=== PATIENT | female | born 1990 | race African-American/Black ===

== ENCOUNTER 2018-02-22 09:48 | Day surgery (SDC) | payer OTHER ==
[2018-02-19 17:50] VITALS: BMI 18.0
[2018-02-22] MEDS ORDERED: MIDAZOLAM HCL 2 MG/2 ML SINGLE DOSE VIAL ONE (11:39)
[2018-02-22] MEDS ORDERED: PROPOFOL 20 ML ONE (11:39)
[2018-02-22] MEDS ORDERED: EPINEPHrine 1:1,000 1 MG/1 ML - 30ML VIAL (INJECTION) ONE (12:04)
[2018-02-22] MEDS ORDERED: ONDANSETRON 4 MG/2 ML VIAL ONE (12:23)
[2018-02-22] MEDS ORDERED: ceFAZolin SODIUM 1 GM VIAL ONE (12:23)
[2018-02-22] MEDS ORDERED: KETOROLAC TROMETHAMINE 30 MG/1 ML VIAL ONE (12:23)
[2018-02-22] MEDS ORDERED: DEXAMETHASONE SOD PHOSPHATE 4 MG/1 ML VIAL ONE (12:23)
[2018-02-22] MEDS ORDERED: TRANEXAMIC ACID 1000 MG/10 ML VIAL ONE (13:23)
[2018-02-22] MEDS ORDERED: BUPIVACAINE HCL 0.25% 125 MG/50 ML VIAL ONE (14:00)
[2018-02-22] MEDS ORDERED: methylPREDNISolone ACET (DEPO) 40 MG/1 ML VIAL ONE (14:00)
[2018-02-22] MEDS ORDERED: ONDANSETRON 4 MG/2 ML VIAL IVPUSH PRN (14:23)
[2018-02-22] MEDS ORDERED: PROMETHAZINE HCL 25 MG/1 ML VIAL IVPUSH PRN (14:23)
[2018-02-22] MEDS ORDERED: oxyCODONE HCL 5 MG TABLET PO PRN ×2 (14:23)
--- NOTE | 2018-02-22 14:32 | OP ---
Operative Note - Note: Operative Date: 02/22/18 Pre-Operative Diagnosis: Right knee PVNS Operation: Surgical arthroscopy right knee with PVNS debridement Post-Operative Diagnosis: Same as Pre-op Surgeon: Florian Iglesias Support Staff: Fredy Iglesias Anesthesiologist/PRINCIPAL CLERK TYPIST: Selwyn Gillespie Anesthesia: General Estimated Blood Loss (mls): 15 Fluid Volume Replaced (mls): 1,000 Operative Report Dictated: Yes
[2018-02-22] MEDS ORDERED: ONDANSETRON 4 MG/2 ML VIAL IVPUSH ONE (15:15)
[2018-02-22 15:53] VITALS: TEMP 97.8
[2018-02-22 16:17] VITALS: BP 120/62; PULSE 76
--- NOTE | 2018-02-22 22:10 | OP ---
DATE OF OPERATION: 02/22/2018 PREOPERATIVE DIAGNOSIS: Pigmented bone, nodular synovitis with recurrent tumor formation. POSTOPERATIVE DIAGNOSIS: Pigmented bone, nodular synovitis with recurrent tumor formation. OPERATION PERFORMED: 1. Arthroscopy. 2. Arthroscopic synovectomy. 3. Resection of tumor. 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 PROCEDURE: Patient correctly identified. Imaging was available for intraoperative evaluation. Timeout was called, and the right lower extremity was prepped in the routine manner with Betadine scrub solution, wiped off with alcohol, DuraPrep applied. Through the old original incisions, the arthroscopic instrumentation was inserted. This revealed the presence of prolific, extensive, pigmented, nodular lesions in the suprapatellar pouch, particularly the medial side of the suprapatellar pouch as well as extending right down to the Hoff[place] fat pad. Using the arthroscopic instrumentation including a 4.5 shaver and appropriately 4.5 diathermy instrumentation with a cloth on the clock, I went ahead and shaved the synovium that was stained brown very lightly with a 4.5 shaver. All nodular lesions are resected. All villous lesions are resected. From what I could visually see throughout. There were 1 or 2 patchy brown spots left behind as it was impossible to take all out. The wounds were thoroughly lavaged with 5 L of saline. The wound was instilled with Marcaine and steroid, and the portals were closed with 3-0 nylon. OVERALL COMMENT: Difficult problem. All went well. No complications. I expect to re-do this arthroscopic debridement and removal of tumor in at least 1 or 2 years depending on her progress. MD AKANKSHA [id number] MTDD
== END 2018-02-22 16:20 | disposition home or self-care (01) ==
LOC: FASU 09:48
PROVIDERS: ATTEND Orthopaedic Surgery Orthopaedic Surgery of the Spine
PROC: 0S5C4ZZ Destruction of Right Knee Joint, Percutaneous Endoscopic Approach (ICD-10-PCS; 2018-02-22)
PROC: 0SBC4ZZ Excision of Right Knee Joint, Percutaneous Endoscopic Approach (ICD-10-PCS; principal; 2018-02-22 11:45)
DX: M12.261 Villonodular synovitis (pigmented), right knee (principal)
CPT/HCPCS: 84703; 94760